=== PATIENT | female | born 1990 ===

== ENCOUNTER 2019-03-12 17:18 | Emergency (ER) | payer OTHER ==
[2019-03-12 17:32] VITALS: BP 148/91
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
[2019-03-12] MEDS ORDERED: Cyclobenzaprine TAB* 10 MG PO ONE (18:05)
== END 2019-03-12 18:22 | disposition home or self-care (01) ==
LOC: UCEAST 17:18
DX: S76.812A Strain of other specified muscles, fascia and tendons at thigh level, left thigh, initial encounter (principal); X50.9XXA Other and unspecified overexertion or strenuous movements or postures, initial encounter; Y93.01 Activity, walking, marching and hiking; Y92.410 Unspecified street and highway as the place of occurrence of the external cause; Y99.8 Other external cause status; M54.42 Lumbago with sciatica, left side; F32.9 Major depressive disorder, single episode, unspecified; Z87.891 Personal history of nicotine dependence
CPT/HCPCS: 99202; A9270-GY; G0463